=== PATIENT | female | born 1990 | race Caucasian/White ===

== ENCOUNTER 2020-09-02 06:54 | Outpatient (NON) | payer OTHER, SELFPAY ==
[2020-09-03 02:59] LABS: SARS-CoV-2 RNA PCR Negative
== END 2020-09-02 06:55 ==
LOC: ANHCOVIDDT 07:05
PROVIDERS: PCP Internal Medicine; Visit Provider Nurse Practitioner
DX: Z20.828 Contact with and (suspected) exposure to other viral communicable diseases (principal); J02.9 Acute pharyngitis, unspecified
CPT/HCPCS: 87635; C9803; U0003

== ENCOUNTER 2021-02-19 11:12 | Outpatient (CLI) | payer BC, SELFPAY ==
--- NOTE | ~2021-02-19 | XR_ITS ---
XR lumbar spine min 4V DATE: 02/19/2021 11:33 INDICATION: Low back pain TECHNIQUE: AP, lateral, bilateral oblique views, coned lateral lumbosacral view COMPARISON: None FINDINGS: There is minimal levoscoliosis of the lumbar spine. No fracture or bone destruction. The bryon mbar pedicles are intact. Lumbar and lumbosacral interspaces are well preserved. No spondylolysis or spondylolisthesis. The sacroiliac joints are intact. IMPRESSION: Minimal levoscoliosis Reviewed, dictated and finalized at location A. IMPRESSION: Minimal levoscoliosis
== END 2021-02-19 11:13 | disposition home or self-care (01) ==
LOC: ANHIMG 11:16
PROVIDERS: PCP Internal Medicine; Visit Provider Nurse Practitioner
DX: M54.5 Low back pain (principal)
CPT/HCPCS: 72110

== ENCOUNTER 2021-07-17 07:33 | Outpatient (CLI) | payer BC, SELFPAY ==
--- NOTE | ~2021-07-17 | MR_ITS ---
EXAMINATION: MR lumbar spine wo con DATE: 07/17/2021 08:26 INDICATION: Dorsalgia, unspecified. TECHNIQUE: Magnetic resonance imaging (MRI) of the lumbar spine was performed without intravenous con trast. Sequences included sagittal T2-weighted FSE, sagittal T2-weighted FS FSE, sagittal T1-weighted FSE, and axial T2-weighted FSE. COMPARISON: Lumbar spine radiographs 02/19/2021 FINDINGS: There is 4 degrees levocurvature of lumbar spine. Vertebral body heights and intervertebral disc heights are normal. The distal spinal cord signal intensity is normal. The conus medullaris is at L1. The following disc levels are specifically discussed: L1-L2: The disc does not extend beyond the endplate margin. There is mild bilateral facet joint osteo arthritis. There is no neural foraminal stenosis. There is no central canal stenosis. L2-L3: The disc does not extend beyond the endplate margin. There is moderate bilateral facet joint o steoarthritis. There is no neural foraminal stenosis. There is no central canal stenosis. L3-L4: The disc is mildly bulging. There is mild bilateral facet joint osteoarthritis. There is mild bilateral neural foraminal stenosis. There is no central canal stenosis. L4-L5: The disc is bulging. There is severe right and moderate left facet joint osteoarthritis. There is mild bilateral neural foraminal stenosis. There is no central canal stenosis. L5-S1: The disc is mildly bulging. There is mild bilateral facet joint osteoarthritis. There is mild bilateral neural foraminal stenosis. There is no central canal stenosis. IMPRESSION: 1. Mild lumbar spondylosis. Reviewed, dictated and finalized at location A. IMPRESSION: 1. Mild lumbar spondylosis.
== END 2021-07-17 07:34 | disposition home or self-care (01) ==
LOC: ANHIMG 07:34
PROVIDERS: PCP Internal Medicine; Visit Provider Clinical Nurse Specialist
DX: M47.817 Spondylosis without myelopathy or radiculopathy, lumbosacral region (principal); M48.07 Spinal stenosis, lumbosacral region
CPT/HCPCS: 72148

== ENCOUNTER 2023-02-24 08:23 | Outpatient (CLI) | payer OTHER, SELFPAY ==
[2023-02-24 10:26] LABS: Kit Draw Collected
== END 2023-02-24 08:24 | disposition home or self-care (01) ==
LOC: ANHGOSHLAB 08:25
PROVIDERS: PCP Internal Medicine; Visit Provider Clinical Nurse Specialist
DX: E03.9 Hypothyroidism, unspecified (principal); Z13.220 Encounter for screening for lipoid disorders
CPT/HCPCS: 36415

== ENCOUNTER 2023-03-07 08:17 | Outpatient (CLI) | payer OTHER, SELFPAY ==
[2023-03-07 14:04] LABS: Basophils Absolute Auto 0.1 K/mm3 (0.0-0.1); Basophils Percent Auto 0.5 % (0.2-1.2); Eosinophils Absolute Auto 0.1 K/mm3 (0-0.3); Eosinophils Percent Auto 0.9 % (0-4.4); Hematocrit 40.9 % (37.0-47.0); Hemoglobin 13.4 g/dL (12.0-15.0); Immature Granulocyte Absolute 0.07 K/mm3 (0.00-0.031); Immature Granulocyte Percent A 0.6 % (0-0.5); Lymphocytes Absolute Auto 2.06 K/mm3 (0.9-3.2); Lymphocytes Percent Auto 18.2 % (18.3-44.2); Mean Corpuscular HGB Conc 32.8 g/dl (32-36); Mean Corpuscular Hemoglobin 26.5 pg (26-34); Mean Platelet Volume 9.6 fl (7.4-10.4); Monocytes Absolute Auto 1.1 K/mm3 (0.1-0.6); Monocytes Percent Auto 9.8 % (2.6-8.5); Neutrophils Absolute Auto 7.9 K/mm3 (1.3-6.7); Platelet Count Result 401 k/mm3 (150-375); Red Blood Count 5.05 M/mm3 (4.2-5.4); Red Cell Distribution Width 14.5 % (11.5-14.5); White Blood Count 11.3 K/mm3 (4.5-10.0)
[2023-03-07 14:36] LABS: Free T4 Free Thyroxine 1.25 ng/mL (0.78-2.19)
== END 2023-03-07 08:18 | disposition home or self-care (01) ==
LOC: ANHGOSHLAB 08:21
PROVIDERS: Visit Provider Clinical Nurse Specialist
DX: E03.9 Hypothyroidism, unspecified (principal); Z85.72 Personal history of non-Hodgkin lymphomas
CPT/HCPCS: 36415; 84439; 85025

== ENCOUNTER 2023-03-10 08:25 | Outpatient (CLI) | payer OTHER, SELFPAY ==
--- NOTE | ~2023-03-10 | US_ITS ---
US thyroid INDICATION: Hypothyroidism. Hoarseness. TECHNIQUE: Real-time sonographic images of the thyroid gland were obtained. COMPARISON: No prior studies for comparison. FINDINGS: The right thyroid lobe measures 3.4 x 1 x 1.1 cm. The left thyroid lobe measures 3.1 x 0.8 x 1.1 cm. There is normal echotexture and echogenicity throughout the thyroid gland. There are small bilateral thyroid nodules. Largest in the right thyroid lobe measures 7 x 7 x 4 mm. This nodule is s olid, slightly hypoechoic, wider than tall, smoothly marginated without echogenic foci, TR 4. There i s a 4 mm cyst in the left thyroid lobe. No suspicious left thyroid nodules. Normal vascular flow is p resent. IMPRESSION: 1. Small bilateral thyroid nodules, largest in the right measuring 7 mm, TR 4. This does not meet so nographic criteria for biopsy or follow-up. Reviewed, dictated and finalized at location B. IMPRESSION: 1. Small bilateral thyroid nodules, largest in the right measuring 7 mm, TR 4. This does not meet sonographic criteria for biopsy or follow-up.
== END 2023-03-10 08:26 ==
LOC: GOSHIMG 08:27
PROVIDERS: PCP Clinical Nurse Specialist; Visit Provider Clinical Nurse Specialist
DX: E03.9 Hypothyroidism, unspecified (principal); R49.0 Dysphonia; E04.2 Nontoxic multinodular goiter
CPT/HCPCS: 76536

== ENCOUNTER 2023-06-23 08:50 | Outpatient (CLI) | payer OTHER, SELFPAY ==
[2023-06-23 17:06] LABS: Basophils Absolute Auto 0.1 K/mm3 (0.0-0.1); Basophils Percent Auto 0.5 % (0.2-1.2); Eosinophils Absolute Auto 0.1 K/mm3 (0-0.3); Eosinophils Percent Auto 0.7 % (0-4.4); Hematocrit 39.3 % (37.0-47.0); Immature Granulocyte Absolute 0.08 K/mm3 (0.00-0.031); Immature Granulocyte Percent A 0.6 % (0-0.5); Lymphocytes Absolute Auto 2.28 K/mm3 (0.9-3.2); Lymphocytes Percent Auto 17.1 % (18.3-44.2); Mean Corpuscular HGB Conc 33.1 g/dl (32-36); Mean Corpuscular Hemoglobin 26.2 pg (26-34); Mean Corpuscular Volume 79.2 fl (80-100); Mean Platelet Volume 9.7 fl (7.4-10.4); Monocytes Absolute Auto 0.7 K/mm3 (0.1-0.6); Monocytes Percent Auto 5.1 % (2.6-8.5); Neutrophils Absolute Auto 10.2 K/mm3 (1.3-6.7); Platelet Count Result 404 k/mm3 (150-375); Red Blood Count 4.96 M/mm3 (4.2-5.4); White Blood Count 13.4 K/mm3 (4.5-10.0)
[2023-06-23 17:19] LABS: Anion Gap 3 mmol/L (8-16); Blood Urea Nitrogen 13 mg/dL (7-17); Carbon Dioxide 26 mmol/L (22-30); Chloride 105 mmol/L (98-107); Estimated Glomerular Filt Rate > 60; Glucose 107 mg/dL (65-110); Potassium 4.1 mmol/L (3.4-5.0); Sodium 134 mmol/L (137-145)
[2023-06-23 17:24] LABS: Rheumatoid Factor < 12.0 IU/ML (<12)
[2023-06-23 17:39] LABS: Erythrocyte Sedimentation Rate 11 mm/hr (0-20)
[2023-06-23 17:40] LABS: Vitamin D 25 Hydroxy 26.8 ng/mL
[2023-06-27 10:40] LABS: ANA Cascade Screen Negative (Negative)
== END 2023-06-23 08:51 | disposition home or self-care (01) ==
LOC: ANHGOSHLAB 08:52
PROVIDERS: PCP Clinical Nurse Specialist; Visit Provider Clinical Nurse Specialist
DX: M35.3 Polymyalgia rheumatica (principal); E55.9 Vitamin D deficiency, unspecified; D72.829 Elevated white blood cell count, unspecified
CPT/HCPCS: 36415; 80048; 82306; 85025; 85652; 86038; 86430

== ENCOUNTER 2023-09-22 08:45 | Outpatient (RCR) | payer OTHER, SELFPAY ==
--- NOTE | 2023-08-25 15:37 | OPREHPOC ---
Outpatient Therapy Plan of Care This is a Multidisciplinary Plan of Care that may contain components documented by all disciplines (PT, OT, and ST.) PT Problem 1 PT Problem #1 Knowledge Deficit PT Goal 1 Goal Pt to be IND with issued HEP Target Visit 8 PT Problem 2 PT Problem #2 Pain PT Goal 1 Goal Pt to report back pain no greater than 3/10 in the last week. Target Visit 8 PT Goal 2 Goal Pt reports 75% improvement in overall symptoms. Target Visit 8 PT Problem 3 PT Problem #3 Impaired Functional Mobil PT Goal 1 Goal Pt to improve standing tolerance from 20mins to 60 mins without an increase in pain. Target Visit 8 PT Problem 4 PT Problem #4 Impaired Functional Mobil PT Goal 1 Goal Pt to demonstrate a 30lb lift and carry without limitations. Target Visit 8
--- NOTE | 2023-08-25 15:38 | PTOPEVAL1 ---
Assessment and note entered by Giovany Bright, PT, DPT Evaluation Information Assessment Status Evaluation Diagnosis chronic low back pain, (G89.29, M48.061, M54.9) Onset 2019 Subjective Information Pt reports a history of back and hip pain since 2019 without a mechanism of injury. She states she got an ablation done without any symptoms. She states her pain is constant, fluctuates, and is inconsistent with when she has pain. She states if she stands for a long time she feels like her hips are being pulls out against her body. She sees a personal training 3x/wk, she reports hearing a clicking sound in her back when exercising. 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 Reported Pain Level Pain Score 5: Self Report Assessment PT Clinical Summary Viry presents to therapy today for her initial evaluation with a diagnosis of chronic low back pain and sacroiliitis. Today she demonstrates decreased lumbar flexion and extension limited by pain, decreased core strength, and tenderness to palpation in her lulú piriformis muscle and L lumbar/thoracic paraspinal. She demonstrates decreased body awareness with functional movements and ambulates with an increased lateral hip sway. Skilled therapy services are indicated to manage pain, improve functional movement mechanics, and to return to PLOF without limitations. Plan of Care Interventions Electrical Stimulation,Gait Training,Hot Pack/Cold Pack,Manual Therapy,Neuro Re-education,Patient/ Caregiver Educati,Therapeutic Activities, Therapeutic Exercise PT Services Indicated Yes Treatment Frequency and 1-2x/wk for 8 visits Duration These treatments will address the objective and functional deficits as defined above. The patient will be advanced safely and appropriately in order for the patient to progress towards his/her prior level of function. Additional exercises will be introduced and as well as a comprehensive home exercise program upon discharge, if needed, ?to ensure carryover of functional gains achieved in the clinic. This treatment plan has been reviewed and agreement upon by the patient.
--- NOTE | 2023-09-13 08:22 | PCPTNOTE ---
Patient no showed this date. When patient was called she states she is at the hospital with her niece who is having a baby and will not be able to make it her appointment today.
--- NOTE | 2023-09-20 08:35 | PCPTNOTE ---
Patient no showed to appointment this date. Called and spoke with patient who states she forgot and is now at work and cannot make it in today.
--- NOTE | 2023-09-27 08:38 | PCPTNOTE ---
Patient did not show up for scheduled appointment this date. LVM to inform of discharge.
--- NOTE | 2023-09-27 08:55 | PTOPDC ---
Assessment and note entered by Giovany Bright, PT, DPT Evaluation Information Assessment Status Discharge - Pt Not Presen Diagnosis chronic low back pain, (G89.29, M48.061, M54.9) Onset 2019 Subjective Information Pt did not show up today for her scheduled re- evaluation. Called and left voicemail to notify her of dishcarge per the attendance policy. Assessment PT Clinical Summary Viry attended 2 visits of skilled therapy and no showed 3 visits. She will be discharged at this time per the attendance policy. If she needs additional therapy she will need a new order.
== END 2023-09-27 09:19 | disposition home or self-care (01) ==
LOC: ANHGOSHPT 08:45
PROVIDERS: PCP Clinical Nurse Specialist; Visit Provider Anesthesiology Pain Medicine
DX: M48.061 Spinal stenosis, lumbar region without neurogenic claudication (principal); M47.817 Spondylosis without myelopathy or radiculopathy, lumbosacral region; M25.559 Pain in unspecified hip; M46.1 Sacroiliitis, not elsewhere classified; M54.9 Dorsalgia, unspecified; G89.29 Other chronic pain
CPT/HCPCS: 97110; 97140; 97161; 97530; 99199

== ENCOUNTER 2023-10-06 13:24 | Outpatient (CLI) | payer OTHER, SELFPAY ==
--- NOTE | ~2023-10-06 | XR_ITS ---
AP view of the pelvis and AP and lateral views of the bilateral hips Clinical history: Pain Findings: No acute fracture or dislocation is seen. Osseous alignment is anatomic. Bilateral hip and SI joint spaces are preserved. Soft tissues are unremarkable. Impression: No significant abnormality is seen. Reviewed, dictated and finalized at [facility]. 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
--- NOTE | ~2023-10-06 | MR_ITS ---
MRI of the lumbar spine Clinical History: Back pain Technique: Axial T2-weighted images, and sagittal T1-weighted, T2-weighted, and T2 fat-sat images wer e acquired. COMPARISON: 07/17/2021 Findings: There is no fracture or subluxation of lumbar spine. Osseous alignment is unchanged. No bon e marrow signal abnormality seen. At L1-L2, there is mild degenerative disc narrowing. No disc bulge or herniation. There is mild facet joint hypertrophy. No central canal stenosis or neural foraminal narrowing. At L2-L3, there is no disc bulge or herniation. There is mild facet arthropathy. No central canal padma nosis or neural foraminal narrowing. At L3-L4, there is minimal disc bulge and mild facet arthropathy. No central canal stenosis or neural foraminal narrowing. At L4-L5, there is diffuse mild disc bulge with moderate facet arthropathy. No central canal stenosis . There is moderate right neural foraminal narrowing and minimal left neural foraminal narrowing. At L5-S1, there is no disc bulge or herniation. There is mild facet arthropathy. No central canal padma nosis. There is moderate left neural foraminal narrowing. Right neural foramen preserved. Paravertebral soft tissues are unremarkable. Impression: Mild degenerative spondylosis, as above. Reviewed, dictated and finalized at location . 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
== END 2023-10-06 13:25 ==
PROVIDERS: PCP Clinical Nurse Specialist; Visit Provider Anesthesiology Pain Medicine
DX: M46.1 Sacroiliitis, not elsewhere classified (principal); M53.3 Sacrococcygeal disorders, not elsewhere classified; M47.896 Other spondylosis, lumbar region
CPT/HCPCS: 72148; 73521

== ENCOUNTER 2023-11-02 08:37 | Outpatient (CLI) | payer OTHER, SELFPAY ==
--- NOTE | ~2023-11-02 | CT_ITS ---
EXAMINATION: CT soft tissue neck chest w DATE: 11/02/2023 09:23 INDICATION: Paralysis of vocal cords and larynx, unilateral. Lymphoma. TECHNIQUE: Computed tomography (CT) of the neck and chest was performed with 75 mL Omnipaque-350 intr avenous contrast. Automated exposure control and iterative reconstruction technique were employed. Th e dose-length product was 727.44 mGy-cm. COMPARISON: None FINDINGS: CT NECK: There is a 13 x 16 mm high left internal jugular chain lymph node. There is asymmetry of the vocal cords, consistent with unilateral vocal cord paralysis. The cervical carotid arteries are norm al. There is mild cervical spondylosis. CT CHEST: There is mild scarring at the lung apices. There is mild atelectasis bilaterally. The heart size is n ormal. No pericardial effusion. There are no pathologically enlarged lymph nodes. There is mild thora cic spondylosis. IMPRESSION: 1. Mildly enlarged left internal jugular chain lymph node, which may be reactive lymphadenopathy or l ymphoma. Reviewed, dictated and finalized at location E. IC WEIGHER IMPRESSION: 1. Mildly enlarged left internal jugular chain lymph node, which may be reactiv e lymphadenopathy or lymphoma.
== END 2023-11-02 08:38 ==
PROVIDERS: PCP Clinical Nurse Specialist; Visit Provider Otolaryngology
DX: J38.01 Paralysis of vocal cords and larynx, unilateral (principal)
CPT/HCPCS: 70491; 71260; Q9967

== ENCOUNTER 2023-11-14 09:53 | Outpatient (CLI) | payer OTHER, SELFPAY ==
--- NOTE | ~2023-11-14 | US_ITS ---
EXAMINATION: US biopsy lymph node DATE: 11/14/2023 11:38 INDICATION: Enlarged left cervical lymph node TECHNIQUE: The procedure including the risks and benefits was discussed with the patient. Risks discu ssed included bleeding and infection. The patient understood the risks and agreed to proceed. The sk in overlying the submandibular left neck was prepped and draped in usual sterile fashion. Anesthetic was administered with 1% lidocaine subcutaneously. An 18 gauge core biopsy needle was advanced under continuous ultrasound observation into the largest high left jugular chain lymph node of concern whi ch is located along the posterior margin of the left submandibular gland. 8 core biopsy specimens wer e obtained, 5 placed in RPMI media and 3 in formalin. The biopsy needle was removed and the entry sit e was cleaned and dressed. There were no immediate complications. FINDINGS: Ultrasound images demonstrate the biopsy needle advanced into the 2.0 x 1.6 x 1.0 cm high l eft jugular chain lymph node of concern. IMPRESSION: 1. Successful CT-guided biopsy of a mildly enlarged left internal jugular chain lymph node. Reviewed, dictated and finalized at location A. TIONAL ANALYST
== END 2023-11-14 09:54 | disposition home or self-care (01) ==
PROVIDERS: PCP Clinical Nurse Specialist; Visit Provider Otolaryngology
DX: R22.1 Localized swelling, mass and lump, neck (principal)
CPT/HCPCS: 38505; 76942; 88305

== ENCOUNTER 2024-12-19 10:29 | Emergency (ER) | payer OTHER, SELFPAY ==
[2024-12-19 10:37] VITALS: BP 145/98; PULSE 115; RESP 16; TEMP 36.6; O2SAT 97
[2024-12-19 10:56] LABS: EDSTREPNEGPOS1 Negative (Negative)
[2024-12-19 10:57] LABS: EDCOVIDSCREEN Negative (Negative); EDINFLUASCREEN Negative (Negative); EDINFLUBSCREEN Negative (Negative)
--- NOTE | 2024-12-19 11:15 | ED_ITS ---
HPI - URI/Sore Throat General Chief Complaint: Upper Respiratory Infection Stated Complaint: Strep Symptoms Time Seen by Provider: 12/19/24 11:15 Source: patient Mode of arrival: ambulatory Limitations: no limitations History of Present Illness HPI Narrative: 34-year-old female presents with complaint of cough, chest congestion, fatigue, intermittent fevers for 5 days. Patient taking ibuprofen to treat fever. Not taking any [id number] medications to treat congestion or cough. All systems reviewed and negative except as noted above. Related Data Allergies Allergy/AdvReac Type Severity Reaction Status Date / Time Penicillins AdvReac Unknown yeast Verified 12/19/24 10:56 infection Review of Systems Review of Systems: CONSTITUTIONAL: Denies fever, chills, or sweats. Reports fatigue. EYES: Denies visual changes, redness, or discharge. ENT: Reports rhinorrhea, congestion, sore throat. Denies otalgia. CARDIOVASCULAR: Denies chest pain, palpitations, or edema. RESPIRATORY: Reports cough, chest congestion. Denies dyspnea. GASTROINTESTINAL: Denies abdominal pain, nausea, vomiting, or diarrhea. GENITOURINARY: Denies dysuria or hematuria. SKIN: Denies rash or itching. MUSCULOSKELETAL: Denies back pain, joint pain, or myalgia. NEUROLOGIC: Denies headache, numbness, or weakness. PSYCHIATRIC: Denies anxiety or depression. All other systems reviewed are negative, except as documented in HPI. [facility] Past Medical History Medical History Abnormal fasting glucose History of non-Hodgkin's lymphoma Hypothyroidism Lymphoma dx at age 18 Vaginal discharge Surgical History Surgical History History of breast biopsy left Previous back surgery (09/22/21) bilateral ablation on back Family History Family History Father Hypertension Mother COPD (chronic obstructive pulmonary disease) Sibling Breast cancer sister Grandparent Breast cancer maternal grandmother Lung cancer maternal grandfather Social History Social History Smoking status: Never smoker Smoking end date: 10/30/05 Alcohol intake: current Alcohol use details: socially Substance use: never Substance use type: does not use Lack of Transportation: No Lack of Food: Never True Current Housing: I Have Housing Concerned About Future Housing: No Difficulty Paying Gas/Electric Bills: No Difficulty Paying for Meds: No Currently Unemployed: No Education: Trade/Vocational Certificate Difficulty w/ Childcare or Family Care: No Living arrangements: other Additional living arrangements comments: with partner Occupation/Education: occupation 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 There is no relevant family history pertinent to the presenting complaint. Exam Narrative: GENERAL: This is a well-nourished, well-developed patient, in no apparent distress. HEAD: normocephalic, atraumatic. EYES: PERRL. Sclera clear/white. Vision is grossly intact. EARS: External ears normal, auditory canals clear and without drainage, TMs normal without perforation. Hearing grossly intact. NOSE: External nose normal with congestion, clear nasal drainage THROAT: Mucous membranes moist, postnasal drainage with mild erythema. No swelling or exudates NECK: Neck supple, non-tender without lymphadenopathy, masses or thyromegaly. CARDIOVASCULAR: Regular rate and rhythm without murmurs, gallops, or rubs. RESPIRATORY: Crackles to right lower lung field. Breath sounds equal bilaterally. No wheezes, rales, or rhonchi. SKIN: warm, Dry, intact with no suspicious lesions or rash, good texture and turgor. NEURO: awake, alert, and oriented to person, place and time. There were no obvious focal neurologic abnormalities. EXTREMITIES: No joint tenderness, effusion, or edema noted. Course Course Level of Care: Express Care Visit Vital Signs Vital signs: Vital Signs Temperature 36.6 C 12/19/24 10:37 Pulse Rate 115 H 12/19/24 10:37 Respiratory Rate 16 12/19/24 10:37 Blood Pressure 145/98 H 12/19/24 10:37 Pulse Oximetry 97 12/19/24 10:37 Oxygen Delivery Room Air 12/19/24 10:37 Temperature 36.6 C 12/19/24 10:37 Pulse Rate 115 H 12/19/24 10:37 Respiratory Rate 16 12/19/24 10:37 Blood Pressure 145/98 H 12/19/24 10:37 Pulse Oximetry 97 12/19/24 10:37 Oxygen Delivery Room Air 12/19/24 10:37 Reviewed MDM - URI/Sore Throat MDM Narrative Medical decision making narrative: Will treat patient with antibiotic due to crackles to right lower lung field. No respiratory distress noted. Alert, nontoxic. Please be advised this is a medical document. It is intended for [id number] communication. It is written in medical language and may contain unfamiliar abbreviations or verbiage. Medical documents are intended to carry relevant information, facts as evident, and the clinical opinion of the practitioner at the time of the encounter. This report may have been done utilizing a voice recognition system. Attempts have been made to correct errors. However, there may be uncorrected grammatical, spelling, and recognition errors present. The file time of this note does not necessarily represent the time of service. Differential Diagnosis Differential diagnosis: Likely upper respiratory infection, sinusitis, viral infection, bronchitis and influenza Lab Data Labs: Lab Results 12/19/24 12/19/24 Range/Units 10:54 10:55 POC Influenza A Ag Negative (Negative) POC Influenza B Ag Negative (Negative) POC SARS CoV-2 Ag Negative (Negative) POC Grp A Strep Screen Negative (Negative) Discharge Plan Discharge Clinical Impression: Acute bronchitis Patient Disposition: Home, Self-Care Condition: Stable Instructions: Antibiotic Form, Acute Bronchitis (ED) Additional Instructions: Your COVID, influenza and strep test was negative today. Take medications as prescribed. Purchase [id number] Mucinex and take as directed on packaging. Continue taking ibuprofen or Tylenol every 6-8 hours as needed for pain and fever. Place cool mist humidifier in bedroom where you sleep. Drink plenty of water and rest. Follow-up with your primary care physician if symptoms are not improving. Patient Language: Luxembourgish Prescriptions: New azithromycin 250 mg tablet See Rx Instructions .ROUTE .COMPLEX Qty: 6 0RF Rx Instructions: For 250 mg dose pack: take 500 mg today (day 1), then 250 mg for 4 days (days 2-5) benzonatate 200 mg capsule 200 mg PO TID PRN (Reason: cough) Qty: 20 0RF methylprednisolone [Medrol (Mj)] 4 mg tablets,dose pack See Rx Instructions PO .COMPLEX Qty: 21 0RF Rx Instructions: orally per package directions No Action celecoxib 200 mg capsule 200 mg PO DAILY 30 Days Qty: 30 2RF Rx Instructions: take 1 capsule p.o. q.a.m. with food water. Can combine with scheduled acetaminophen 1 g p.o. t.i.d. 1 mg-20 mcg (24)/75 mg (4) tablet 1 tablet PO DAILY Qty: 112 2RF Rx Instructions: Please allow early refill, pt takes continuously levothyroxine 75 mcg tablet 75 mcg PO DAILY Qty: 30 0RF Rx Instructions: NEEDS APPOINTMENT FOR FURTHER REFILLS Follow-up/Referrals: Greta Garcia, ENTRY LEVEL WEB DEVELOPER-C [Primary Care Provider] - Stand Alone Forms: Work/School Release IP Time of Disposition: 11:22
== END 2024-12-19 11:27 | disposition home or self-care (01) ==
PROVIDERS: Emergency Provider Nurse Practitioner Family; PCP Clinical Nurse Specialist
DX: J20.9 Acute bronchitis, unspecified (principal); Z20.822 Contact with and (suspected) exposure to COVID-19; Z87.891 Personal history of nicotine dependence; E03.9 Hypothyroidism, unspecified; Z85.72 Personal history of non-Hodgkin lymphomas
CPT/HCPCS: 87081; 87426; 87804; 87880; 99213; G0463